=== PATIENT | female | born 1995 | race Two or more races ===

== ENCOUNTER 2024-02-13 15:38 | Emergency (ER) | payer OTHER ==
[~2024-02-13] VITALS: Ht 152.4 cm; Wt 77.1 kg
[2024-02-13] MEDS ORDERED: LORazepam 2 MG/ML VIAL IM ONE (16:15)
[2024-02-13 16:24] LABS: HEMATOCRIT 36.4 % (36.0-45.00); HEMOGLOBIN 12.4 g/dL (12.0-15.00); MEAN CELL VOLUME 93.5 fL (80.00-100.00); MEAN CORPUSCULAR HEMOGLOBIN 31.8 pg (27.00-32.0); PLATELET COUNT 209 K/uL (150-450); RED CELL DISTRIBUTION WIDTH 12.6 % (11.5-14.5)
[2024-02-13 17:02] LABS: CALCIUM 8.1 mg/dL (8.5-10.1); CREATININE SERUM 0.68 mg/dL (0.55-1.02); GFR 102.29; POTASSIUM 3.6 mEq/L (3.5-5.1)
[2024-02-13 17:42] LABS: URINE APPEARANCE Clear; URINE BILIRRUBIN Negative (NEGATIVE); URINE BLOOD Large; URINE COLOR Yellow; URINE GLUCOSE Negative (NEGATIVE); URINE KETONE Negative (NEGATIVE); URINE LEUKOCYTE Small; URINE NITRATE Negative; URINE PROTEIN Negative (NEGATIVE)
[2024-02-13 17:46] LABS: URINE BACTERIA 895.6 uL (0.0-1933); URINE EPITHELIAL CELLS 30.2 uL (0.0-38.8); URINE RBC 185.8 uL (0.0-20.8); URINE WBC 102.1 uL (0.0-23.2)
[2024-02-13 17:49] LABS: URINE CAST 0.15 uL (0.0-1.40)
== END 2024-02-13 18:09 | disposition home or self-care (01) ==
LOC: ER 15:38
PROVIDERS: Emergency Medicine
DX: R56.9 Unspecified convulsions (principal); Z88.6 Allergy status to analgesic agent